=== PATIENT | female | born 1945 | race Caucasian/White ===

== ENCOUNTER 2016-06-27 00:56 | Emergency (ER) | payer MEDICARE, OTHER ==
--- NOTE | 2016-06-27 01:54 | ERNOTE ---
Medical Problem HPI - General Chief Complaint: General Assessment Time Seen by Provider: 06/27/16 01:45 Source: patient Exam Limitations: no limitations - Immun/Allergies/Home Medications Immunizations: IMMUNIZATION HX Immunizations Up to Date Yes History of Influenza Vaccine Yes Hx Pneumococcal Vaccination Yes Allergies/Adverse Reactions: Allergies ciprofloxacin [From Cipro] Allergy (Verified 11/19/15 03:08) ciprofloxacin HCl [From Cipro] Allergy (Verified 11/19/15 03:08) Quinolones Allergy (Verified 05/31/15 11:28) Sulfa (Sulfonamide Antibiotics) Allergy (Verified 11/19/15 03:08) Tricyclic Compounds Allergy (Verified 05/31/15 11:28) amitriptyline Adverse Reaction (Verified 11/19/15 03:09) levofloxacin Adverse Reaction (Verified 11/19/15 03:08) niacin Adverse Reaction (Verified 11/19/15 03:08) nortriptyline Adverse Reaction (Verified 11/19/15 03:08) Home Medications: HOME MEDICATIONS Cholecalciferol (Vitamin D3) [Vitamin D3] 1,000 unit PO DAILY 09/21/13 [Last Taken Unknown] Estrogens, Conjugated [Premarin Cream] 1 appl VG FR 09/21/13 [Last Taken ] Levothyroxine Sodium [Synthroid] 150 mcg PO DAILY 09/21/13 [Last Taken Unknown] Losartan Potassium 50 mg PO DAILY 09/21/13 [Last Taken Unknown] Multivitamins [Multivitamin Jacquelyn] 1 cap PO DAILY 09/21/13 [Last Taken Unknown] Phenytoin Sodium Extended [Dilantin] 300 mg PO HS 09/21/13 [Last Taken Unknown] Ranitidine HCl [Zantac] 300 mg PO DAILY 09/21/13 [Last Taken Unknown] Aspirin [Aspirin Enteric Coated] 81 mg PO DAILY #0 tablet. 09/22/13 [Last Taken Unknown] Gabapentin [Neurontin] 600 mg PO BID #60 capsule 09/22/13 [Last Taken Unknown] Albuterol Sulfate [Albuterol Sulfate 2.5 MG/0.5ML] 2.5 mg IH Q4H PRN #0 vial.neb 11/28/14 [Last Taken Unknown] Lactobacillus Acidophilus [Bacid] 1 cap PO ACHS #120 btl 11/28/14 [Last Taken Unknown] Ascorbic Acid [Vitamin C] 500 mg PO DAILY 11/19/15 [Last Taken Unknown] HYDROcodone/ACETAMINOPHEN [[place] 5-325] 1 each PO BID PRN 11/19/15 [Last Taken Unknown] Pantoprazole Sodium [Protonix] 40 mg PO BID 11/19/15 [Last Taken Unknown] Sennosides/Docusate Sodium [Senokot-S] 1 tab PO QID 11/19/15 [Last Taken Unknown ] Activated Charcoal [Charcoal] 260 mg PO QID #120 capsule 11/23/15 [Last Taken Unknown] Atenolol [Tenormin] 50 mg PO BID #60 tablet 11/23/15 [Last Taken Unknown] Simethicone [Mylicon Chewable Tablets] 2 tab PO ACHS #240 tab.chew 11/23/15 [ Last Taken Unknown] amLODIPine BESYLATE [Norvasc] 10 mg PO DAILY #30 tablet 11/23/15 [Last Taken Unknown] Atorvastatin Calcium [Lipitor] 40 mg PO HS 06/27/16 [Last Taken Unknown] Budesonide/Formoterol Fumarate [Symbicort 160-4.5 Mcg Inhaler] 2 puff IH BID [Last Taken Unknown] Lamotrigine [Lamictal] 25 mg PO BID 06/27/16 [Last Taken Unknown] Melatonin 10 mg PO HS 06/27/16 [Last Taken Unknown] Ondansetron HCl [Zofran] 8 mg PO 06/27/16 [Last Taken Unknown] Reserpine 0.5 mg PO HS 06/27/16 [Last Taken Unknown] Warfarin Sodium [Coumadin] 5 mg PO DAILY 06/27/16 [Last Taken Unknown] fentaNYL [Duragesic] 100 mcg TD Q72H 06/27/16 [Last Taken Unknown] - History of Present History Narrative: Pt states that she has had upset stomach and belching for 1-2 weeks. she has tried OTC gas-x charcoal caps and ondansetron without relief Timing: constant Severity: moderate Review of Systems - Review of Systems Constitutional: Absent: recent illness, fever, chills EYE: Present: no symptoms reported ENT: Present: no symptoms reported Respiratory: Absent: shortness of breath, cough Cardiology: Absent: chest pain Gastrointestinal/Abdominal: Present: nausea, constipation. Absent: vomiting, diarrhea Genitourinary: Present: no symptoms reported Musculoskeletal: Present: no symptoms reported Skin: Present: no symptoms reported Neurological: Present: no symptoms reported Endocrine: Present: no symptoms reported Hematologic/Lymphatic: Present: no symptoms reported Psych: Present: no symptoms reported - Patient's Past Medical History Patient History - Medical: Anemia, Anxiety, Arthritis, Chronic Pain, Depression , GERD, Hypothyroidism, Migraines, UTI'S, Other Patient History - Cardiac/Respiratory: Coronary Heart Disease, Hypertension, Other Patient History - Cancer: Breast Patient History - Surgical Procedures: Cataracts, Cholecystectomy, D & C, Hysterectomy, Tubal Ligation, Other Patient History - Other: None - Family History Father Family History - Medical: Family History - Cardiac/Respiratory: CVA/Stroke, Hypertension Mother Family History - Medical: Family History - Cardiac/Respiratory: Coronary Heart Disease, Hypertension, Peripheral Vascular Disease - Social History Living Situations: home Abuse History: No History of abuse Psych History: No pertinent hx Smoking Status: Former smoker Have you smoked in the past 12 months: No Do you dip or chew tobacco: No Alcohol Use: none Drug Use: none - Immunizations Immunizations Up to Date: Yes Hx Pneumococcal Vaccination: Yes History of Influenza Vaccine: Yes Physical Exam - Physical Exam General Appearance: Present: wd/wn, alert, no apparent distress Ears, Nose, Throat: Present: normal ENT inspection Neck: Present: normal inspection Respiratory: Present: no respiratory distress, no accessory muscle use Gastrointestinal/Abdominal: Present: nontender, nondistended, soft, abnormal bowel sounds - hyperactive. Absent: guarding, rebound Back Exam: Present: no CVA tenderness Extremity Exam: Present: normal inspection Neurological Exam: Present: alert, oriented, normal mood/affect, no motor/ sensory deficits Skin Exam: Present: normal color, warm/dry Lymphatic Exam: Present: no adenopathy ED Progress - Results and Orders Patient's Lab Results:: I have reviewed the patient's lab results. Results and Orders: Laboratory Tests 06/27/16 06/27/16 02:06 02:06 WBC 4.8 Hgb 10.7 L Hct 35.1 L Plt Count 264 Sodium 147 H Potassium 4.1 Chloride 108 H Carbon Dioxide 33.5 H Anion Gap 9.6 BUN 15 Creatinine 0.87 Random Glucose 103 Calcium 8.5 Total Bilirubin 0.2 AST 35 ALT 38 Alkaline Phosphatase 117 Total Protein 7.4 Albumin 3.6 - Vital Signs Patient's Vital Signs:: I have reviewed the patient's vital signs. Vital Signs: Vital Signs 06/27/16 01:05 Temperature 36.8 C Pulse Rate 55 L Respiratory 16 Rate Blood Pressure 142/68 O2 Sat by Pulse 92 Oximetry - X-Ray X-Ray #1 X-Ray: abdomen Interpretation: Interp. by me X-ray Comments: Severe thoraco-lumbar scoliosis. moderate to severe stool retention, Moderate non-specific air pattern - Progress/Reassessment Chief Complaint: General Assessment Departure - Departure Clinical Impression: Constipation by delayed colonic transit Disposition: Home self-care Condition: Good Instructions: Constipation, Adult, [id number] Additional Instructions: try using a laxative with senna on a regular basis or at least when you begin to have these symptoms. follow up if not improving Referrals: Yousuf Marks MD [Primary Care Provider] -
--- OUTSIDE RECORDS SUMMARY | 2016-06-27 02:00 | XMS REPORT | CCD ---
:1945 Author Name AGNES DHALIWAL Address [address] Unavailable [place], [place] [id number] Care Team Providers Name Role Phone LARS HEWITT, SALLY Keith Attending Physician Unavailable Vital Signs Unknown or Not Available. Allergies Unknown or Not Available. Procedures Unknown or Not Available. History of Immunizations Unknown or Not Available. Problems Unknown or Not Available. Results Unknown or Not Available. Active Medications Unknown or Not Available. Medications Administered During Visit Unknown or Not Available. Encounters Encounter Diagnosis Diagnosis Code Start Date Poisoning by other synthetic narcotics, accidental [id number] 03/07/2016 (unintentional), initial encounter Social History Smoking Status Code Start Date End Date Unknown if ever smoked [id number] Patient Decision Aids Unknown or Not Available. Discharge Instructions You were admitted to [facility] on 03/07/2016 08:12 with a principal diagnosis of Poisoning by other synthetic narcotics, accidental (unintentional) , initia You were discharged from [facility] on 03/07/2016 08:12 Should you have any questions prior to discharge, please contact a member of your healthcare team. If you have left the hospital and have any questions, please contact your primary care physician. Chief Complaint and Reason For Visit Unknown or Not Available. Function Status Unknown or Not Available. Plan of Care Unknown or Not Available. Referral/Transition of Care Unknown or Not Available.
--- OUTSIDE RECORDS SUMMARY | 2016-06-27 02:00 | XMS REPORT | Continuity of Care Document ---
:1945 Author Organization [facility] ([facility]) Address [address] [place] [address] Phone [phone] Care Team Providers Name Role Phone Yousuf Alonso Primary Care Provider [phone] Source Comments This disclosure is being made pursuant to the Care Everywhere program, applicable federal and state laws, and may not contain all informaitonavailable regarding this patient.[facility] ([facility]) Active Allergies and Adverse Reactions Allergen Noted Date Severity Reactions Comments Amitriptyline Urticaria (Hives) also Nortriptyline Sulfadoxine Pruritus Current Medications Prescription Sig. Disp. Refills Start Date End Date Status amLODIPine (NORVASC) Take 10 mg by mouth Active 10 mg tablet daily. atenolol (TENORMIN) take 1.5 Tabs by 75 Tab 11 10/14/2008 Active 50 mg tablet mouth 2 times daily. Take 75mg twice a day, Indications: Hypertension LACTOBACILLUS Take 1 tablet by Active RHAMNOSUS GG mouth 3 times daily (PROBIOTIC PO) with meals. multivitamin tablet Take 1 Tab by mouth Active daily. cholecalciferol Take 1,000 Units by Active (VITAMIN D) 1,000 mouth daily. unit Tab tablet levothyroxine 150 mcg Take 150 mcg by Active tablet mouth every morning before breakfast. aspirin 81 mg EC Take 81 mg by mouth Active tablet daily. phenytoin 100 mg ER Take 300 mg by mouth Active capsule at bedtime. losartan 50 mg tablet Take 1 Tab by mouth 30 Tab 11 05/05/2013 Active daily. Indications: HYPERTENSION estrogens, conjugated insert 0.5 g 1 Tube 11 06/01/2014 Active (PREMARIN) 0.625 vaginally every mg/gram vaginal cream week. Indications: ATROPHIC VAGINITIS ASSOCIATED WITH MENOPAUSE ranitidine 300 mg Take 300 mg by mouth Active tablet daily. ascorbic acid Take 500 mg by mouth Active (vitamin C) (VITAMIN daily. C) 500 mg tablet pantoprazole 40 mg EC Take 40 mg by mouth Active tablet 2 times daily. albuterol 90 Use 2 Puffs by Active mcg/Actuation inhaler inhalation every 6 hours as needed. gabapentin 600 mg Take 600 mg by mouth Active tablet 2 times daily. cloNIDine HCl 0.1 mg Take 0.1 mg by mouth Active tablet 3 times daily. venlafaxine 25 mg Take 25 mg by mouth Active tablet 3 times daily. fentanyl 75 mcg/hr Apply 1 Patch (75 3 Patch 0 03/09/2016 Active patch mcg total) on the skin every 72 hours. Remove patch before placing new patch HYDROcodone-acetamino Take 1 tablet by 30 tablet 0 03/09/2016 Active phen 5-325 mg per mouth every 6 hours tablet as needed for Pain. simethicone 80 mg Take 2 tablets (160 30 tablet 0 03/09/2016 Active chewable tablet mg total) by mouth 4 times daily as needed for Flatulence. enoxaparin (LOVENOX) Inject 60 mg 7 Syringe 0 03/09/2016 Active 60 mg/0.6 mL subcutaneously every injection syringe 12 hours. melatonin 3 mg tablet Take 1 tablet (3 mg 30 tablet 0 03/09/2016 Active total) by mouth at bedtime. warfarin 3 mg tablet Take 1 tablet (3 mg 7 tablet 0 03/09/2016 Active total) by mouth daily. Active Problems Problem Noted Date Chronic pain 03/09/2016 HTN (hypertension) 03/09/2016 Shock liver 03/07/2016 Absence of bladder continence 06/02/2014 CAD (coronary artery disease) 05/05/2013 Overview: -Mild nonobstructive CAD by cath 2005. Right dominant system with 20-30% RCA stenosis, other vessels with only mild diffuse disease -Normal myocardial perfusion scan 05/2012. Exposure of vaginal mesh through vaginal wall 08/29/2012 Overview: Small posterior exposure, asymptomatic Last Assessment & Plan: No change, continue expectant management GERD (gastroesophageal reflux disease) 07/11/2011 Overview: A/p [place] twice S/P aortic valve replacement 07/11/2011 Overview: Mechanical prosthesis #23 [place] and aortic root replacement. On Coumadin Breast Carcinoma (lobular in situ) 10/11/2008 Hypothyroidism 10/11/2008 Mitral valve prolapse 10/11/2008 TMJ (temporomandibular joint disorder) 10/11/2008 Restless leg syndrome 10/11/2008 Shortness of breath 04/01/2006 Marfan's syndrome 11/09/2005 Diaphragmatic hernia without mention of obstruction or gangrene 08/09/2005 Occlusion and stenosis of carotid artery without mention of cerebral 2005 infarction Resolved Problems Problem Noted Date Resolved Date Stupor 03/07/2016 03/09/2016 Acute renal failure 03/07/2016 03/09/2016 Respiratory acidosis 03/07/2016 03/09/2016 Uterovaginal prolapse, incomplete 04/30/2012 08/29/2012 Urge incontinence 04/30/2012 05/26/2013 Aftercare following surgery of the circulatory system, NEC 01/10/20062011 Aortic aneurysm of unspecified site without mention of 01/10/2006 05/05/2013 rupture Aortic valve disorders 12/04/2005 05/05/2013 Meningioma 04/05/1989 05/01/1999 Immunizations Name Dates Previously Given Next Due Influenza, unspecified 04/05/2012,03/06/2011 Pneumococcal, unspecified 04/05/2012,05/06/2009 Social History Tobacco Use Types Packs/Day Years Used Date Former Smoker Cigarettes 1 35 Quit: 01/04/1997 Smokeless Tobacco: Never Used Tobacco Cessation:Counseling Given: Yes Comments:01/1997 Alcohol Use Drinks/Week oz/Week Comments No Last Filed Vital Signs Vital Sign Reading Time Taken Blood Pressure 157/73 03/09/2016 7:55 AM CDT Pulse 61 03/09/2016 7:55 AM CDT Temperature 37.3 C (99.1 F) 03/09/2016 7:55 AM CDT Respiratory Rate 18 03/09/2016 1:15 PM CDT Height 1.626 m (5' 4") 03/07/2016 4:01 PM CDT Weight 63.5 kg (139 lb 15.9 oz) 03/09/2016 5:48 AM CDT Body Mass Index 24.02 03/09/2016 5:48 AM CDT Oxygen Saturation 98% 03/09/2016 7:55 AM CDT Plan of Care Health Maintenance Due Date Last Done Comments Hepatitis B Vaccine (1 of 3 1945 - Primary Series) Tdap Vaccine 1956 Td Vaccine 1963 Mammogram 1985 Colonoscopy 1995 Zoster Vaccine 2005 Pneumococcal Vaccine (1 of 2 2010 - PCV13) Influenza Vaccine: Seasonal 12/05/2015 04/05/2012, (#1) 03/06/2011 Lipid Disorder Screening 05/15/2017 05/15/2012, Additional history exists 05/14/2012, 06/26/2010 Osteoporosis Screening (DXA Completed 08/05/2002 Bone Density) HCV Screening Completed 03/08/2016 Results from Last 3 Months Not on file
[2016-06-27 02:11] LABS: Hematocrit 35.1 % (37.0-47.0); Hemoglobin 10.7 gm/dL (12.5-16.0); Mean Cell Volume 87.8 fl (78-100); Mean Corpuscular Hemoglobin 26.8 pg (27-31); Mean Corpuscular Hgb Conc 30.5 g/dl (32-36); Mean Platelet Volume 8.7 fl (6.0-9.5); Neutrophil # 2.6 K/mm3 (1.3-6.0); Neutrophil % 53.1 % (42-75.0); Platelet Count 264 K/mm3 (150-450); Red Cell Distribution Width 14.7 % (11.5-14.0); White Blood Count 4.8 K/mm3 (4.0-10.5)
[2016-06-27 02:25] LABS: Albumin * 3.6 gm/dl (3.4-5.0); Anion Gap 9.6 mmol/L (6.8-13.8); BUN/Creatinine Ratio 17.2 (9.0-21.6); Bilirubin, Total 0.2 mg/dL (0.0-1.1); Ca. Corrected For Albumin 8.5 mg/dL (8.4-10.2); Calcium * 8.5 mg/dL (7.9-10.9); Carbon Dioxide 33.5 mmol/L (24-32.6); Potassium 4.1 mmol/L (3.4-4.6); Total Protein 7.4 gm/dL (6.2-8.2)
[2016-06-27 03:05] VITALS: BP 105/86
== END 2016-06-27 03:05 | disposition home or self-care (01) ==
LOC: ER 00:56
DX: K59.09 Other constipation (principal); I10 Essential (primary) hypertension; K21.9 Gastro-esophageal reflux disease without esophagitis; E03.9 Hypothyroidism, unspecified; G89.29 Other chronic pain

== ENCOUNTER 2016-08-02 18:57 | Emergency (ER) | payer MEDICARE, OTHER ==
--- OUTSIDE RECORDS SUMMARY | 2016-08-02 19:29 | XMS REPORT | Continuity of Care Document ---
:1945 Author Organization [facility] ([facility]) Address [address] [place] [address] Phone [phone] Care Team Providers Name Role Phone Yousuf Alonso Primary Care Provider [phone] Source Comments This disclosure is being made pursuant to the Care Everywhere program, applicable federal and state laws, and may not contain all informaitonavailable regarding this patient.[facility] ([facility]) Active Allergies and Adverse Reactions Allergen [...]
--- NOTE | 2016-08-02 19:34 | ERNOTE ---
<Ish Braga - Last Filed: 08/02/16 19:59> Medical Problem HPI - General Chief Complaint: General Assessment Time Seen by Provider: 08/02/16 19:23 Source: patient Exam Limitations: no limitations - Immun/Allergies/Home Medications Immunizations: IMMUNIZATION HX Immunizations Up to Date Yes History of Influenza Vaccine Yes Hx Pneumococcal Vaccination Yes Allergies/Adverse Reactions: Allergies ciprofloxacin [From Cipro] Allergy (Verified 11/19/15 03:08) ciprofloxacin HCl [From Cipro] Allergy (Verified 11/19/15 03:08) Quinolones Allergy (Verified 05/31/15 11:28) Sulfa (Sulfonamide Antibiotics) Allergy (Verified 11/19/15 03:08) Tricyclic Compounds Allergy (Verified 05/31/15 11:28) amitriptyline Adverse Reaction (Verified 11/19/15 03:09) levofloxacin Adverse Reaction (Verified 11/19/15 03:08) niacin Adverse Reaction (Verified 11/19/15 03:08) nortriptyline Adverse Reaction (Verified 11/19/15 03:08) Home Medications: HOME MEDICATIONS Cholecalciferol (Vitamin D3) [Vitamin D3] 1,000 unit PO DAILY 09/21/13 [Last Taken Unknown] Estrogens, Conjugated [Premarin Cream] 1 appl VG FR 09/21/13 [Last Taken ] Levothyroxine Sodium [Synthroid] 150 mcg PO DAILY 09/21/13 [Last Taken Unknown] Losartan Potassium 50 mg PO DAILY 09/21/13 [Last Taken Unknown] Multivitamins [Multivitamin Jacquelyn] 1 cap PO DAILY 09/21/13 [Last Taken Unknown] Phenytoin Sodium Extended [Dilantin] 300 mg PO HS 09/21/13 [Last Taken Unknown] Ranitidine HCl [Zantac] 300 mg PO DAILY 09/21/13 [Last Taken Unknown] Aspirin [Aspirin Enteric Coated] 81 mg PO DAILY #0 tablet. 09/22/13 [Last Taken Unknown] Gabapentin [Neurontin] 600 mg PO BID #60 capsule 09/22/13 [Last Taken Unknown] Albuterol Sulfate [Albuterol Sulfate 2.5 MG/0.5ML] 2.5 mg IH Q4H PRN #0 vial.neb 11/28/14 [Last Taken Unknown] Lactobacillus Acidophilus [Bacid] 1 cap PO ACHS #120 btl 11/28/14 [Last Taken Unknown] Ascorbic Acid [Vitamin C] 500 mg PO DAILY 11/19/15 [Last Taken Unknown] HYDROcodone/ACETAMINOPHEN [[place] 5-325] 1 each PO BID PRN 11/19/15 [Last Taken Unknown] Pantoprazole Sodium [Protonix] 40 mg PO BID 11/19/15 [Last Taken Unknown] Sennosides/Docusate Sodium [Senokot-S] 1 tab PO QID 11/19/15 [Last Taken Unknown ] Activated Charcoal [Charcoal] 260 mg PO QID #120 capsule 11/23/15 [Last Taken Unknown] Atenolol [Tenormin] 50 mg PO BID #60 tablet 11/23/15 [Last Taken Unknown] Simethicone [Mylicon Chewable Tablets] 2 tab PO ACHS #240 tab.chew 11/23/15 [ Last Taken Unknown] amLODIPine BESYLATE [Norvasc] 10 mg PO DAILY #30 tablet 11/23/15 [Last Taken Unknown] Atorvastatin Calcium [Lipitor] 40 mg PO HS 06/27/16 [Last Taken Unknown] Budesonide/Formoterol Fumarate [Symbicort 160-4.5 Mcg Inhaler] 2 puff IH BID [Last Taken Unknown] Melatonin 10 mg PO HS 06/27/16 [Last Taken Unknown] Ondansetron HCl [Zofran] 8 mg PO 06/27/16 [Last Taken Unknown] Reserpine 0.5 mg PO HS 06/27/16 [Last Taken Unknown] Warfarin Sodium [Coumadin] 5 mg PO DAILY 06/27/16 [Last Taken Unknown] fentaNYL [Duragesic] 100 mcg TD Q72H 06/27/16 [Last Taken Unknown] lamoTRIgine [Lamictal] 25 mg PO BID 06/27/16 [Last Taken Unknown] - History of Present History Narrative: Patient is brought in by the family because they feel she may be having a stroke he states she has been sleeping all the time and this really feel inclined to eat. Had a similar episode in the recent past where she was overmedicated on her fentanyl patch at that time 150 g. The strength of the fentanyl patch was reduced to 75 g however she's having similar symptoms now to when she did then. Timing: constant Severity: moderate Review of Systems - Review of Systems Constitutional: Present: See HPI EYE: Present: no symptoms reported ENT: Present: no symptoms reported Respiratory: Present: no symptoms reported Cardiology: Present: no symptoms reported Gastrointestinal/Abdominal: Present: no symptoms reported Genitourinary: Present: no symptoms reported Musculoskeletal: Present: back pain - chronic Skin: Present: no symptoms reported Neurological: Present: other - pt is sleeping alot Endocrine: Present: no symptoms reported Hematologic/Lymphatic: Present: no symptoms reported Psych: Present: no symptoms reported - Patient's Past Medical History Patient History - Medical: Anemia, Anxiety, Arthritis, Chronic Pain, Depression , GERD, Hypothyroidism, Migraines, UTI'S, Other Patient History - Cardiac/Respiratory: Coronary Heart Disease, Hypertension, Other Patient History - Cancer: Breast Patient History - Surgical Procedures: Cataracts, Cholecystectomy, D & C, Hysterectomy, Tubal Ligation, Other Patient History - Other: None - Family History Father Family History - Medical: Family History - Cardiac/Respiratory: CVA/Stroke, Hypertension Mother Family History - Medical: Family History - Cardiac/Respiratory: Coronary Heart Disease, Hypertension, Peripheral Vascular Disease - Social History Living Situations: home Abuse History: No History of abuse Psych History: No pertinent hx Smoking Status: Former smoker Alcohol Use: none Drug Use: none - Immunizations Immunizations Up to Date: Yes Hx Pneumococcal Vaccination: Yes History of Influenza Vaccine: Yes Physical Exam - Physical Exam General Appearance: Present: wd/wn, alert, mild distress, other - somewhat slow to respond Eye Exam: Normal inspection: bilateral, PERRL: bilateral Ears, Nose, Throat: Present: normal ENT inspection, H, normal pharynx Neck: Present: normal inspection, nontender Respiratory: Present: no respiratory distress, normal breath sounds, no accessory muscle use, chest nontender, lungs clear, other - shallow breathing Cardiovascular/Chest: Present: regular rate, rhythm, no murmur, normal peripheral pulses Gastrointestinal/Abdominal: Present: normal bowel sounds, nontender, nondistended, soft, no organomegaly Rectal Exam: Present: deferred Back Exam: Present: normal range of motion, other - chronic low back pain Extremity Exam: Present: normal inspection, non-tender, no edema, normal range of motion Neurological Exam: Present: alert, oriented, normal mood/affect Skin Exam: Present: normal color, warm/dry Lymphatic Exam: Present: no adenopathy ED Progress - Vital Signs Vital Signs: Vital Signs 08/02/16 19:09 Temperature 37.7 C H Pulse Rate 63 Respiratory 18 Rate Blood Pressure 106/59 O2 Sat by Pulse 84 L Oximetry - EKG EKG: atrial fibrillation - Progress/Reassessment Chief Complaint: General Assessment - Transfer of Care Physician Sign Out: Ish Braga Receiving Physician: Eduardo Parry Departure - Departure Clinical Impression: Medication reaction, Altered awareness, transient, Non-STEMI (non-ST elevated myocardial infarction), Azotemia, Elevated troponin level Disposition: [facility] Condition: Stable <Eduardo Parry - Last Filed: 08/03/16 00:09> Medical Problem HPI - Immun/Allergies/Home Medications Immunizations: IMMUNIZATION HX Immunizations Up to Date Yes History of Influenza Vaccine Yes Hx Pneumococcal Vaccination Yes ED Progress - Date and Time Seen: Date and Time: 08/02/16 23:55 THE CTA CHEST WAS FINISHED AD DREAD BY DR BECK PRELIMINARY DREPORT AND DOES NOT SHOW ANY PULMONARY EMBOLUS . I WILL CALL BACK TO TALK TO [facility] ER DOCTOR ABOUT THE TRANSFER AND REPEAT THE TROPONIN IN THE MEANTIME. - Results and Orders Patient's Lab Results:: I have reviewed the patient's lab results. Results and Orders: PT WITH MULTIPLE NEW ABNORMALITIES INCLUDING ELEVATED TROPONIN, D-DIMER, K+, BUN /CREAT, LFT'S, ALL NEW FOR HER. PT/INR ADDED AND IS PENDING. ABG RESULTS NOT DONE YET. - Vital Signs Vital Signs: Vital Signs 08/02/16 08/02/16 08/02/16 19:09 19:25 20:08 Temperature 37.7 C H Pulse Rate 63 64 60 Respiratory 18 16 Rate Blood Pressure 106/59 O2 Sat by Pulse 84 L 100 Oximetry 08/02/16 08/02/16 08/02/16 20:22 20:25 21:00 Temperature Pulse Rate 58 L 60 Respiratory 16 12 Rate Blood Pressure 119/62 114/56 O2 Sat by Pulse 96 100 97 Oximetry 08/02/16 21:02 Temperature Pulse Rate 59 L Respiratory Rate Blood Pressure O2 Sat by Pulse Oximetry - EKG EKG: NSR, unchanged from - 2015 - X-Ray X-Ray #1 X-Ray: chest Interpretation: Interp. by me - UNREMARKABLE , SHE HAS SCOLIOSIS AND PRIOR OPEN HEART SURGERY WITH AVR. THERE IS SOME APPARRENT LEFT LUNG VOLUME LOSS THAT IS PRESENT BEFORE AND MAY BE POSITIONAL - CT/Ultrasound CT/Ultrasound Narrative: CTA CHEST = NO PULMONARY EMBOLISM. SHE HAS ALSO HAS AN EARLIER CT HEAD WITHOUT CONTRAST THAT WAS NEGATIVE FOR ACUTE FINDINGS. - Progress/Reassessment Progress:: Pain free at discharge - Transfer of Care Pending Results: Labs - THERE IS A REPEAT TROPONIN ORDERED AT THE TIME OF TRANSFER TO [facility], DR. BRAVO IS AWARE IT IS PENDING. Plan - Plan Plan: D/W DR ACEVEDO, HOSPITALIST, AND SHE WILL ADMIT AND SEE ON THE FLOOR. DR ACEVEDO CALLED BACK AND TOLD NURSE THAT PT . SHOULD BE TRANSFERRED TO HIGHER LEVEL OF CARE AT 2114. SHE HAS TALKED O JULIA THE PT WITH THE TRANSPORT ANALYST WHO SUGGESTED THE TRANSFER. WE WILL NOW WORK ON ARRANGING THAT TRANSFER. AFTER DISCUSSION WITH DR BRAVO , ER DOCTOR AT [facility] , HE WOULD LIKE ME TO DO A CTA CHEST TO LOOK FOR EMBOLUS IF SHE HAS ONE THEY WOULD NOT BE ABLE TO CARE FOR HER THERE AND WOULD HAVE TO DECLINE THE TRANSFER. I EXPLAINED THE BUN/CREAT AND HE SUGGESTED A FLUID BOLUS AND DO THE EXAM. THIS WAS ORDERED. THE CTA -CHEST RETURNED NEGATIVE FOR PULMONARY EMBOLISM SO I D/W DR BRAVO AGAIN, ER DRRegan AT [facility], WHO ACCEPTED THE PT . IN TRANSFER.
[2016-08-02 19:46] LABS: Hematocrit 34.8 % (37.0-47.0); Hemoglobin 10.1 gm/dL (12.5-16.0); Mean Cell Volume 89.7 fl (78-100); Mean Platelet Volume 8.5 fl (6.0-9.5); Neutrophil # 5.5 K/mm3 (1.3-6.0); Neutrophil % 74.2 % (42-75.0); Platelet Count 226 K/mm3 (150-450); Red Blood Count 3.88 M/mm3 (4.2-5.4); Red Cell Distribution Width 16.2 % (11.5-14.0); White Blood Count 7.5 K/mm3 (4.0-10.5)
[2016-08-02 20:01] LABS: Urine Bilirubin Negative (NEGATIVE); Urine Blood 250 /ul (NEGATIVE); Urine Ketone Negative (NEGATIVE); Urine Nitrite Negative (NEGATIVE); Urine Protein 30 mg/dL (NEGATIVE); Urine Specific Gravity >=1.030 SP.GR. (1.005-1.010); Urine Urobilinogen Normal (NORMAL); Urine pH 5.5 pH (5.0-7.0)
[2016-08-02 20:05] LABS: Albumin * 3.3 gm/dl (3.4-5.0); Anion Gap 11.2 mmol/L (6.8-13.8); BUN/Creatinine Ratio 12.1 (9.0-21.6); Bilirubin, Total 0.3 mg/dL (0.0-1.1); Ca. Corrected For Albumin 8.4 mg/dL (8.4-10.2); Calcium * 8.2 mg/dL (7.9-10.9); Carbon Dioxide 30.6 mmol/L (24-32.6); Magnesium 2.3 mg/dL (1.2-2.8); Potassium 5.8 mmol/L (3.4-4.6); Total Protein 6.8 gm/dL (6.2-8.2)
[2016-08-02 20:06] LABS: Troponin I 2.55 ng/ml (0.00-0.10)
[2016-08-02 20:21] LABS: Urine Appearance Cloudy; Urine Bacteria 1+; Urine Color Dark Yellow; Urine RBC TRACE /hpf (0-5); Urine WBC 0-5 /hpf (0-5)
[2016-08-02] MEDS ORDERED: NORMAL SALINE 1,000 ML IV ONE ×2 (20:44→21:34)
[2016-08-02 21:29] LABS: Prothrombin Time (Patient) 20.8 Seconds (9.4-11.4)
[2016-08-02 23:36] VITALS: BP 135/63
== END 2016-08-03 00:27 | disposition short-term general hospital (02) ==
LOC: ER 18:57
PROC: 0T9B70Z Drainage of Bladder with Drainage Device, Via Natural or Artificial Opening (ICD-10-PCS; principal; 2016-08-02)
DX: T40.4X5D Adverse effect of other synthetic narcotics, subsequent encounter (principal); R40.4 Transient alteration of awareness; I21.4 Non-ST elevation (NSTEMI) myocardial infarction; R79.89 Other specified abnormal findings of blood chemistry; Z85.3 Personal history of malignant neoplasm of breast